=== PATIENT | female | born 1995 | race African-American/Black ===

== ENCOUNTER 2020-11-29 01:22 | Observation (INO) ==
[2020-11-29] MEDS ORDERED: SODIUM CHLORIDE 0.9% 100 ML IV ONE (01:27)
[2020-11-29] MEDS ORDERED: ceFAZolin 1,000 MG VIAL ONE (01:27)
[2020-11-29] MEDS ORDERED: DIPH/TET/ACEL PERT BOOSTER VACCINE 0.5 ML VIAL IM ONE (01:34)
[2020-11-29] MEDS ORDERED: SODIUM CHLORIDE 0.9% 1,000 ML IV STA (01:34)
[2020-11-29 01:51] LABS: Basophils % 0.3 % (0.0-0.8); Eosinophils # 0.5 10*3/uL (0.0-0.87); Hematocrit 33.3 VOL% (35.7-47.0); Hemoglobin 10.4 GM/DL (12.0-16.0); Immature Granulocytes % 0.2 %; Immature Granulocytes Absolute 0.03 #; Lymphocytes # 7.1 10*3/uL (1.4-4.0); Lymphocytes % 47.7 % (21.3-54.2); Mean Corpuscular HGB Conc 31.2 GM/DL (32-36); Mean Corpuscular Volume 92.2 FL (87-102); Mean Platelet Volume 9.6 FL (9.6-12.0); Monocytes % 7.9 % (1.7-12.7); Neutrophils % 40.9 % (38.7-73.9); Platelet Count 431 T/CUMM (130-400); Red Blood Count 3.61 MC/CUMM (3.8-5.5); Red Cell Distribution Width 14.6 % (9.3-17.3)
[2020-11-29 01:55] LABS: Alanine Aminotransferase 17 U/L (13-56); Albumin 3.5 G/DL (3.4-5.0); Alkaline Phosphatase 85 U/L (45-117); Aspartate Amino Transferase 13 U/L (0-37); Bilirubin,Total < 0.39 MG/DL (0.2-1.0); Blood Urea Nitrogen 9 MG/DL (7-18); Carbon Dioxide 22 MMOL/L (21-32); Estimated Glom Filtration Rate 94 ML/MIN; Glucose 67 MG/DL (74-106); Osmolality,Calculated 266.1 MOS/KG (273-304); Potassium 3.4 MMOL/L (3.5-5.1); Sodium 135 MMOL/L (136-145); Total Protein 8.2 G/DL (6.4-8.2)
[2020-11-29] MEDS ORDERED: DEXTROSE 50% 25 GM/50 ML SYRINGE IV ONE (02:02)
[2020-11-29] MEDS ORDERED: DEXTROSE 50% 25 GM/50 ML VIAL IV STA (02:04)
[2020-11-29 02:37] LABS: Eosinophils 2 % (0-10); Hypochromasia Slight; Lymphocytes 57 % (20-55); Platelet Estimate Increased; Segmented Neutrophils 35 % (50-85); Total Cells Counted 100
[2020-11-29] MEDS ORDERED: HYDROmorphone 2 MG/1 ML VIAL IV ONE (02:58)
[2020-11-29] MEDS ORDERED: ONDANSETRON 4 MG/2 ML VIAL IV STA (02:58)
[2020-11-29] MEDS ORDERED: HYDROmorphone 2 MG/1 ML VIAL ONE (02:59)
[2020-11-29] MEDS ORDERED: ONDANSETRON 4 MG/2 ML VIAL ONE (02:59)
[2020-11-29 03:30] LABS: Bilirubin,Urine Negative (Negative); Blood, Urine Negative (Negative); Glucose,Urine (UA) >=500 mg/dL (Negative); Ketones,Urine Negative (Negative); Nitrite,Urine Negative (Negative); Protein,Urine Negative; RBC,Urine 1 /HPF (0-4); Squamous Epithelial Cell,Urine Occasional /HPF (0-10); Urine Appearance CLEAR (Clear); Urine Color Colorless (Yellow); Urine Specific Gravity 1.029 (1.001-1.035); Urine Urobilinogen < 2.0 EU/DL (0.2-1.0); WBC,Urine <1 /HPF (0-6)
[2020-11-29 04:06] LABS: Barbiturates Screen,Urine Negative (Negative); Benzodiazepines Screen,Urine Negative (Negative); Cannabinoid Screen,Urine Negative (Negative); Opiate Screen,Urine Negative (Negative); Phencyclidine Screen,Urine Negative (Negative)
[2020-11-29] MEDS ORDERED: SODIUM CHLORIDE 0.9% 1,000 ML IV SCH (05:42)
[2020-11-29] MEDS ORDERED: ACETAMINOPHEN 325 MG TABLET PO PRN (05:42)
[2020-11-29] MEDS ORDERED: ONDANSETRON 4 MG/2 ML VIAL IV PRN (05:42)
[2020-11-29] MEDS ORDERED: metroNIDAZOLE 500 MG TABLET PO STA (05:43)
[2020-11-29] MEDS ORDERED: methylPREDNISolone SOD SUC 125 MG/2 ML VIAL IV STA (05:43)
[2020-11-29] MEDS ORDERED: LOPERAMIDE 2 MG CAPSULE PO STA ×2 (05:43→05:50)
[2020-11-29] MEDS ORDERED: metroNIDAZOLE INJ 500 MG in PREMIX 1 EACH IV SCH (06:00)
[2020-11-29] MEDS ORDERED: POTASSIUM CHLORIDE RIDER 10 MEQ in PREMIX 1 EACH IV PRN (08:05)
[2020-11-29] MEDS ORDERED: PANTOPRAZOLE 40 MG TABLET PO SCH (09:00)
[2020-11-29] MEDS: HYDROmorphone 2 MG/1 ML VIAL IV PRN ×2 (09:05→13:10)
[2020-11-29 13:17] VITALS: BP 128/84
== END 2020-11-29 12:11 | disposition home health service (06) ==
LOC: N.EDINP 01:22 → N.ED 01:22 → N.EDINP 02:30
PROVIDERS: ADMIT Student in an Organized Health Care Education/Training Program; ATTEND Student in an Organized Health Care Education/Training Program